=== PATIENT | male | born 1995 | race Caucasian/White ===

== ENCOUNTER 2017-07-15 11:33 | Emergency (ER) | payer SELFPAY ==
[~2017-07-15] VITALS: Ht 172.7 cm; Wt 99.3 kg
[2017-07-15 11:35] VITALS: Ht 172.7 cm; Wt 99.3 kg
[2017-07-15 14:31] VITALS: BP 118/64
== END 2017-07-15 14:31 | disposition home or self-care (01) ==
LOC: ED 11:33
DX: J11.1 Influenza due to unidentified influenza virus with other respiratory manifestations (principal); F17.200 Nicotine dependence, unspecified, uncomplicated
CPT/HCPCS: J1885; J7030